=== PATIENT | male | born 1970 | race Two or more races ===

== ENCOUNTER 2018-08-03 08:42 | Outpatient (CLI) | payer OTHER ==
[~2018-08-03 08:42] MED LIST: MEDROL4 MG PO; NABUMETONE500 MG PO; NEURONTIN300 MG PO; PERCOCET 5/3251 TAB PO
== END 2018-08-03 08:52 | disposition home or self-care (01) ==
LOC: RAD 08:42
DX: M79.672 Pain in left foot (principal); M72.2 Plantar fascial fibromatosis

== ENCOUNTER 2019-12-03 09:48 | Outpatient (CLI) | payer OTHER | END 2019-12-03 15:33 | disposition home or self-care (01) | LOC: MRI 09:48 | PROVIDERS: ATTEND General Practice | DX: M25.572 Pain in left ankle and joints of left foot (principal); T79.9XXS Unspecified early complication of trauma, sequela | CPT/HCPCS: 73718 ==

== ENCOUNTER 2021-04-02 10:05 | Outpatient (CLI) | payer OTHER | END 2021-04-02 10:38 | disposition home or self-care (01) | LOC: TOM 10:05 | PROVIDERS: ATTEND Internal Medicine Gastroenterology | DX: Q44.6 Cystic disease of liver (principal); K57.32 Diverticulitis of large intestine without perforation or abscess without bleeding ==

== ENCOUNTER 2021-05-04 09:30 | Inpatient (IN) | payer OTHER ==
[~2021-05-04] VITALS: Ht 175.3 cm; Wt 90.7 kg
[2021-05-09] MEDS ORDERED: HYOSCYAMINE0.125 M1 SL (10:23)
[2021-05-09] MEDS ORDERED: INTESTINEX680 M1 PO (10:24)
[2021-05-09] MEDS ORDERED: PERCOCET 5-3251 EACH PO (10:24)
[2021-05-09] MEDS ORDERED: BACTRIM DS TAB1 EACH PO (10:25)
== END 2021-05-09 11:02 | disposition home or self-care (01) | DRG 331 ==
LOC: SURH 05-06 09:30 → O/R 05-06 09:45 → SURH 05-06 15:30
PROVIDERS: ADMIT Surgery; ATTEND Surgery
PROC: 0DJD8ZZ Inspection of Lower Intestinal Tract, Via Natural or Artificial Opening Endoscopic (ICD-10-PCS; 2021-05-06)
PROC: 0DTN4ZZ Resection of Sigmoid Colon, Percutaneous Endoscopic Approach (ICD-10-PCS; principal; 2021-05-06 15:30)
DX: K57.20 Diverticulitis of large intestine with perforation and abscess without bleeding (principal); R10.32 Left lower quadrant pain; R19.4 Change in bowel habit; G43.909 Migraine, unspecified, not intractable, without status migrainosus

== ENCOUNTER → 2021-05-13 | Emergency (ER) | payer OTHER ==
[~2021-05-13] MED LIST changes: +BACTRIM DS TAB1 EACH PO; +HYOSCYAMINE0.125 M1 SL; +INTESTINEX680 M1 PO; +PERCOCET 5-3251 EACH PO
== END | disposition left against medical advice (07) ==
LOC: ER 19:07
DX: Z53.21 Procedure and treatment not carried out due to patient leaving prior to being seen by health care provider (principal)

== ENCOUNTER 2021-05-14 09:53 | Emergency (ER) | payer OTHER ==
[~2021-05-14] VITALS: Ht 175.3 cm; Wt 87.1 kg
== END 2021-05-14 16:26 | disposition home or self-care (01) ==
LOC: ER 09:53
DX: T88.9XXA Complication of surgical and medical care, unspecified, initial encounter (principal); L76.34 Postprocedural seroma of skin and subcutaneous tissue following other procedure; R68.83 Chills (without fever); Z90.49 Acquired absence of other specified parts of digestive tract; Z20.822 Contact with and (suspected) exposure to COVID-19; Z48.811 Encounter for surgical aftercare following surgery on the nervous system; Y82.8 Other medical devices associated with adverse incidents
CPT/HCPCS: 74177; Q9965

== ENCOUNTER 2021-06-15 09:53 | Outpatient (CLI) | payer OTHER | END 2021-06-15 15:00 | disposition home or self-care (01) | LOC: LAB 09:53 | PROVIDERS: ATTEND Specialist | DX: K57.90 Diverticulosis of intestine, part unspecified, without perforation or abscess without bleeding (principal); Z13.1 Encounter for screening for diabetes mellitus; E78.49 Other hyperlipidemia; Z13.29 Encounter for screening for other suspected endocrine disorder; Z12.5 Encounter for screening for malignant neoplasm of prostate ==

== ENCOUNTER 2021-06-15 10:21 | Outpatient (CLI) | payer OTHER | END 2021-06-15 10:25 | disposition home or self-care (01) | LOC: TOM 10:21 | DX: R10.84 Generalized abdominal pain (principal); Z48.810 Encounter for surgical aftercare following surgery on the sense organs ==

== ENCOUNTER 2022-05-10 10:39 | Outpatient (CLI) | payer OTHER | END 2022-05-10 15:34 | disposition home or self-care (01) | LOC: MRI 10:39 | PROVIDERS: ATTEND Orthopaedic Surgery | DX: M25.561 Pain in right knee (principal) | CPT/HCPCS: 73721 ==

== ENCOUNTER 2022-05-17 10:10 | Outpatient (CLI) | payer OTHER | END 2022-05-17 13:42 | disposition home or self-care (01) | LOC: TOM 10:10 | PROVIDERS: ATTEND Specialist | DX: G43.919 Migraine, unspecified, intractable, without status migrainosus (principal); U09.9 Post COVID-19 condition, unspecified ==

== ENCOUNTER 2022-10-17 12:43 | Outpatient (CLI) | payer OTHER | END 2022-10-17 13:05 | disposition home or self-care (01) | LOC: TOM 12:43 | PROVIDERS: ATTEND General Practice | DX: G44.011 Episodic cluster headache, intractable (principal) ==

== ENCOUNTER 2022-10-20 10:21 | Emergency (ER) | payer OTHER ==
[~2022-10-20] VITALS: Ht 175.3 cm; Wt 88.5 kg
[2022-10-20] MEDS ORDERED: NORFLEX100MG PO (11:32)
[2022-10-20] MEDS ORDERED: KETO10TA2 PO (11:32)
== END 2022-10-20 11:50 | disposition home or self-care (01) ==
LOC: ER 10:21
DX: M54.2 Cervicalgia (principal)

== ENCOUNTER 2024-01-02 13:39 | Outpatient (CLI) | payer OTHER ==
[~2024-01-02 13:39] MED LIST changes: +KETO10TA2 PO; +NORFLEX100MG PO
== END 2024-01-02 13:51 | disposition home or self-care (01) ==
LOC: RAD 13:39
DX: J32.9 Chronic sinusitis, unspecified (principal)

== ENCOUNTER 2025-03-07 12:05 | Outpatient (CLI) | payer OTHER | END 2025-03-07 12:13 | disposition home or self-care (01) | LOC: RAD 12:05 | PROVIDERS: ATTEND Specialist | DX: Z01.812 Encounter for preprocedural laboratory examination (principal) ==